=== PATIENT | female | born 1995 | race Caucasian/White ===

== ENCOUNTER 2017-02-28 22:31 | Emergency (ER) | payer SELFPAY ==
[~2017-02-28] VITALS: Ht 154.9 cm; Wt 63.5 kg
[2017-02-28 22:37] VITALS: BP 129/90
--- NOTE | 2017-02-28 23:47 | NUR ---
PATIENT AMBULATED TO ER BED 6.
--- NOTE | 2017-03-01 | NUR ---
PATIENT BEING EVALUATED BY DR. SOSA.
--- NOTE | 2017-03-01 00:01 | NUR ---
PT PRESENT TO ER C/O LOWER ABD PAIN RADIATING TO HER BACK FOR 3 DAYS, HEADACHE,
[2017-03-01] MEDS ORDERED: IBUPROFEN 800 MG TAB PO ONE (00:10)
[2017-03-01] MEDS ORDERED: SULFAMETH/TRIMETH DS 800/160MG 1 TAB PO ONE (00:10)
[2017-03-01 00:28] VITALS: BP 123/84
--- NOTE | 2017-03-01 00:29 | NUR ---
Patient discharged with v/s stable. Written and verbal after care instructions given and explained. Patient alert, oriented and verbalized understanding of instructions. Ambulatory with steady gait. All questions addressed prior to discharge. ID band removed. Patient advised to follow up with PMD. Rx of PYRIDIUM 200MG PO, MACROBID CAPSULE PO, MOTRIN 800MG PO given. Patient educated on indication of medication including possible reaction and side effects. Opportunity to ask questions provided and answered.
== END 2017-03-01 00:29 | disposition home or self-care (01) ==
LOC: MED 22:31
DX: N39.0 Urinary tract infection, site not specified (principal)

== ENCOUNTER 2017-06-02 13:56 | Emergency (ER) | payer OTHER ==
[~2017-06-02] VITALS: Ht 157.5 cm; Wt 67.7 kg
[2017-06-02 14:18] VITALS: BP 127/63
--- NOTE | 2017-06-02 14:38 | NUR ---
PATIENT TO BED 3 AT THIS TIME.
--- NOTE | 2017-06-02 14:53 | NUR ---
PATIENT PRESENTS TO ED WITH UTERINE CRAMPING STARTING A FEW HOURS. PT STATES SHE HAS BEEN VOMITING TODAY. DENIES DIARRHEA. PT IS 17 WEEKS . SKIN IS PINK/WARM/DRY; AAOX4 WITH EVEN AND STEADY GAIT; LUNGS CLEAR BL; HR EVEN AND REGULAR; PT DENIES ANY FEVER, CP, SOB, OR COUGH AT THIS TIME; PATIENT STATES PAIN OF 8/10 AT THIS TIME; VSS; PATIENT POSITIONED FOR COMFORT; HOB ELEVATED; BEDRAILS UP X2; BED DOWN. ER MD MADE AWARE OF PT STATUS.
[2017-06-02] MEDS ORDERED: NACL 0.9% 1,000 ML IV ONE (15:13)
[2017-06-02 15:56] LABS: BASOPHILS # (AUTO) 0.1 K/uL (0.00-0.22); BASOPHILS % (AUTO) 0.6 % (0.0-2.0); EOSINOPHILS # (AUTO) 0.3 K/uL (0-0.4); EOSINOPHILS % (AUTO) 2.4 % (0.0-4.0); HEMATOCRIT 32.3 % (36-48); HEMOGLOBIN 10.8 g/dL (12.0-16.0); LYMPHOCYTES # (AUTO) 2.6 K/uL (2.5-16.5); LYMPHOCYTES % (AUTO) 19.6 % (20.5-51.1); MEAN CORPUSCULAR HEMOGLOBIN 29 pg (27-31); MEAN CORPUSCULAR HGB CONC 34 g/dL (33-37); MEAN CORPUSCULAR VOLUME 87 fL (80-94); MONOCYTES # (AUTO) 0.8 K/uL (0.8-1.0); NEUTROPHILS # (AUTO) 9.3 K/uL (1.8-7.7); NEUTROPHILS % (AUTO) 71.4 % (42.2-75.2); PLATELET COUNT (AUTO) 272 K/uL (140-450); RED BLOOD CELL COUNT(AUTO) 3.71 MIL/uL (4.20-5.40); RED CELL DISTRIBUTION WIDTH 12.7 % (11.6-13.7); WHITE BLOOD COUNT (AUTO) 13.1 K/uL (4.5-11.0)
[2017-06-02 16:04] LABS: ALBUMIN 3.2 g/dL (3.4-5.0); ANION GAP 13.3 (8-16); CARBON DIOXIDE 23.6 mmol/L (21-32); CREATININE 0.5 mg/dL (0.6-1.3); POTASSIUM 3.9 mmol/L (3.5-5.1); TOTAL BILIRUBIN 0.3 mg/dL (0.0-1.0)
--- NOTE | 2017-06-02 16:07 | NUR ---
Patient appears to be resting comfortably in bed. Vital Signs within normal limits. Respirations even and unlabored.
[2017-06-02 16:17] LABS: APPEARANCE,URINE HAZY (CLEAR); BILIRUBIN,URINE NEGATIVE (NEGATIVE); BLOOD, URINE NEGATIVE (NEGATIVE); COLOR,URINE YELLOW (YELLOW); LEUKOCYTE ESTERASE ,URINE NEGATIVE (NEGATIVE); NITRITE, URINE NEGATIVE (NEGATIVE); UGLUCOSE NEGATIVE (NEGATIVE)
--- NOTE | 2017-06-02 16:18 | NUR ---
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
--- NOTE | 2017-06-02 18:05 | NUR ---
Patient discharged with v/s stable. Written and verbal after care instructions given and explained. Patient verbalized understanding. Ambulatory with steady gait. All questions addressed prior to discharge. Advised to follow up with PMD.
[2017-06-02 18:06] VITALS: BP 108/58
== END 2017-06-02 18:05 | disposition home or self-care (01) ==
LOC: MED 13:56
DX: O26.891 Other specified pregnancy related conditions, first trimester (principal); R10.30 Lower abdominal pain, unspecified; Z3A.01 Less than 8 weeks gestation of pregnancy; Z90.49 Acquired absence of other specified parts of digestive tract
CPT/HCPCS: 36415; 76805; 80053; 81003; 81025; 82150; 83690; 84702; 85025; 96360; 96361; 99285; J7030; Q0092

== ENCOUNTER 2018-09-02 10:48 | Emergency (ER) | payer OTHER ==
[~2018-09-02] VITALS: Ht 154.9 cm; Wt 80.5 kg
[2018-09-02 10:55] VITALS: BP 116/81
--- NOTE | 2018-09-02 11:07 | NUR ---
pt taken to lobby w/ vss to wait for the next available bed.
--- NOTE | 2018-09-02 11:50 | NUR ---
pt ambulates w/ steady gait to bed 7 atthis time
--- NOTE | 2018-09-02 11:53 | NUR ---
23 yo f bib self w/ c/o left sided rib cage pain/side pain that started yesterday whilelaying in bed. states that she was unable to sleepon that side because of the pain. denies injury/trauma. reports dizziness, but denies n/v/d/fever. reports that she had a cough yesterday that exacerbated the pain. hx denies rx denies
[2018-09-02] MEDS ORDERED: IBUPROFEN 800 MG TAB PO ONE (12:05)
[2018-09-02 12:12] VITALS: BP 120/75
== END 2018-09-02 12:13 | disposition home or self-care (01) ==
LOC: MED 10:48
DX: M94.0 Chondrocostal junction syndrome [Tietze] (principal)
CPT/HCPCS: 81002; 81025; 99283

== ENCOUNTER 2019-03-02 11:32 | Emergency (ER) | payer OTHER ==
[~2019-03-02] VITALS: Ht 154.9 cm; Wt 81.8 kg
--- NOTE | 2019-03-02 11:44 | NUR ---
PATIENT AMBULATED TO BED 4.
[2019-03-02 11:46] VITALS: BP 151/100
--- NOTE | 2019-03-02 12:01 | NUR ---
PT BIB SELF TO THE ED WITH THE CHIEF C/O FREQUENCY OF URINATION FOR A WEEK. PT NOTICED BLOOD IN URINE LAST NIGHT. DENIES BURNING URINATION. COMPLAINS OF LOWER BACK PAIN 5/10 AT THIS TIME. C/O NAUSEA AND DIARRHEA X3. DENIES VOMITING. ABDOMEN SOFT, ROUND AND NON-TENDER. ACTIVE BOWEL SOUND. DENIES OTHER PROBLEM AT THIS TIME.
[2019-03-02 12:06] LABS: APPEARANCE,URINE CLOUDY (CLEAR); BILIRUBIN,URINE NEGATIVE (NEGATIVE); BLOOD, URINE NEGATIVE (NEGATIVE); COLOR,URINE YELLOW (YELLOW); LEUKOCYTE ESTERASE ,URINE 2+ (NEGATIVE); NITRITE, URINE NEGATIVE (NEGATIVE); UGLUCOSE NEGATIVE (NEGATIVE)
[2019-03-02 12:26] LABS: RBC,URINE NONE SEEN /HPF (0-5); WBC,URINE 0-5 /HPF (0-5)
--- NOTE | 2019-03-02 12:36 | NUR ---
PT BEING EVALUATED BY ER AT THIS TIME.
[2019-03-02] MEDS ORDERED: LEVOFLOXACIN 500 MG TAB PO ONE (12:45)
[2019-03-02 13:30] VITALS: BP 139/88
--- NOTE | 2019-03-02 13:48 | NUR ---
Patient discharged with v/s stable. Written and verbal after care instructions given and explained. Patient alert, oriented and verbalized understanding of instructions. Ambulatory with steady gait. All questions addressed prior to discharge. ID band removed. Patient advised to follow up with PMD. Rx of LEVAQUIN 500MG given. Patient educated on indication of medication including possible reaction and side effects. Opportunity to ask questions provided and answered.
== END 2019-03-02 13:48 | disposition home or self-care (01) ==
LOC: MED 11:32
DX: N30.90 Cystitis, unspecified without hematuria (principal)
CPT/HCPCS: 81001; 81025; 87086; 99283

== ENCOUNTER 2019-06-02 10:39 | Emergency (ER) | payer OTHER ==
[~2019-06-02] VITALS: Ht 157.5 cm; Wt 81.8 kg
[2019-06-02 10:54] VITALS: BP 132/86
--- NOTE | 2019-06-02 12:02 | NUR ---
PT TAKEN TO BED 3.
--- NOTE | 2019-06-02 12:10 | NUR ---
Note undone in EDM - 06/02/19 at 1232 by MED BIB SELF. AAO X4 C/O INTERMITTENT NUMBNESS AND TINGLING FROM FEET TO LEGS AND HANDS X5 DAYS. PT STATES NO PAIN AT THIS TIME. PERRLA BRISK 3MM, FULL CLEAR SPEECH, NO FACIAL ASYMMETRY, EQUAL CHELITA STRENGTH TO UPPER AND LOWER EXTREMITIES. PT AMBULATED WITH STEADY GAIT. +CMS TO CHELITA ARMS AND CHELITA LEGS. ER TO EVALUATE PT.
--- NOTE | 2019-06-02 12:10 | NUR ---
BIB SELF. AAO X4 C/O INTERMITTENT NUMBNESS AND TINGLING FROM FEET TO LEGS AND HANDS X5 DAYS. PT STATES NO PAIN AT THIS TIME. PT DENIES FEVER, N/V/D, SOB AND TRAUMA. PERRLA BRISK 3MM, FULL CLEAR SPEECH, NO FACIAL ASYMMETRY, EQUAL CHELITA STRENGTH TO UPPER AND LOWER EXTREMITIES. PT AMBULATED WITH STEADY GAIT. +CMS TO CHELITA ARMS AND CHELITA LEGS. ER TO EVALUATE PT.
--- NOTE | 2019-06-02 12:20 | NUR ---
DR TURCIOS AT BEDSIDE FOR PT EVALUATION
[2019-06-02 12:59] LABS: BASOPHILS # (AUTO) 0.1 K/uL (0.00-0.22); BASOPHILS % (AUTO) 0.6 % (0.0-2.0); EOSINOPHILS # (AUTO) 0.5 K/uL (0-0.4); EOSINOPHILS % (AUTO) 4.5 % (0.0-4.0); HEMATOCRIT 39.1 % (36-48); HEMOGLOBIN 13.1 g/dL (12.0-16.0); LYMPHOCYTES # (AUTO) 3.4 K/uL (2.5-16.5); LYMPHOCYTES % (AUTO) 32.2 % (20.5-51.1); MEAN CORPUSCULAR HEMOGLOBIN 29 pg (27-31); MEAN CORPUSCULAR HGB CONC 34 g/dL (33-37); MEAN CORPUSCULAR VOLUME 85.9 fL (80-94); MONOCYTES # (AUTO) 0.6 K/uL (0.8-1.0); MONOCYTES % (AUTO) 5.5 % (1.7-9.3); NEUTROPHILS % (AUTO) 57.2 % (42.2-75.2); PLATELET COUNT (AUTO) 332 K/uL (140-450); RED BLOOD CELL COUNT(AUTO) 4.56 MIL/uL (4.20-5.40); RED CELL DISTRIBUTION WIDTH 13.2 % (11.6-13.7); WHITE BLOOD COUNT (AUTO) 10.4 K/uL (4.8-10.8)
[2019-06-02 13:15] LABS: ALBUMIN 3.6 g/dL (3.4-5.0); ANION GAP 10.2 (8-16); CARBON DIOXIDE 28.7 mmol/L (21-32); CREATININE 0.6 mg/dL (0.6-1.3); POTASSIUM 3.9 mmol/L (3.5-5.1); TOTAL BILIRUBIN 0.4 mg/dL (0.0-1.0)
--- NOTE | 2019-06-02 13:32 | NUR ---
pt resting comfortably in bed; vital signs stable.
[2019-06-02 13:56] VITALS: BP 118/74
--- NOTE | 2019-06-02 13:56 | NUR ---
Patient discharged with v/s stable. Written and verbal after care instructions given and explained. Patient alert, oriented and verbalized understanding of instructions. Ambulatory with steady gait. All questions addressed prior to discharge. ID band removed. Patient advised to follow up with PMD. Rx of VALIUM 5 MG given. Patient educated on indication of medication including possible reaction and side effects. Opportunity to ask questions provided and answered.
== END 2019-06-02 13:56 | disposition home or self-care (01) ==
LOC: MED 10:39
DX: R20.2 Paresthesia of skin (principal); M54.9 Dorsalgia, unspecified; R06.02 Shortness of breath; Z90.49 Acquired absence of other specified parts of digestive tract
CPT/HCPCS: 36415; 70450; 80053; 81025; 85025; 99284

== ENCOUNTER 2019-06-15 16:11 | Emergency (ER) | payer OTHER ==
[~2019-06-15] VITALS: Ht 154.9 cm; Wt 81.6 kg
[2019-06-15 16:20] VITALS: BP 118/66
[2019-06-15] MEDS ORDERED: IBUPROFEN 600 MG TAB PO ONE (18:25)
[2019-06-15 19:15] VITALS: BP 110/69
== END 2019-06-15 19:15 | disposition home or self-care (01) ==
LOC: MED 16:11
DX: M25.572 Pain in left ankle and joints of left foot (principal); W18.39XA Other fall on same level, initial encounter; Y92.89 Other specified places as the place of occurrence of the external cause; Y93.89 Activity, other specified; Y99.8 Other external cause status
CPT/HCPCS: 73610; 99283

== ENCOUNTER 2019-07-15 17:24 | Emergency (ER) | payer OTHER ==
[~2019-07-15] VITALS: Ht 154.9 cm; Wt 83.0 kg
[2019-07-15 17:37] VITALS: BP 129/85
[2019-07-15] MEDS ORDERED: KETOROLAC 60 MG/2 ML VIAL IM ONE (17:55)
[2019-07-15 18:32] VITALS: BP 129/85
== END 2019-07-15 18:31 | disposition home or self-care (01) ==
LOC: MED 17:24
DX: N39.0 Urinary tract infection, site not specified (principal); Z90.89 Acquired absence of other organs
CPT/HCPCS: 81002; 81025; 96372; 99283; J1885

== ENCOUNTER 2019-08-13 15:21 | Emergency (ER) | payer OTHER ==
[~2019-08-13] VITALS: Ht 154.9 cm; Wt 81.6 kg
[2019-08-13 15:24] VITALS: BP 107/67
--- NOTE | 2019-08-13 15:30 | NUR ---
PT AMBULATED TO BED 08
--- NOTE | 2019-08-13 15:32 | NUR ---
PATIENT PRESENTS TO ED WITH C/O INTERMITTENT LLQ PAIN, LT SIDE AND LT BACK PAIN X TODAY WORSENING. STATES NAUSEA, URINARY FREQUENCY AND URGENCY. DENIES FEVER. PAIN 10/10. VSS; PATIENT POSITIONED FOR COMFORT; HOB ELEVATED; BEDRAILS UP X2; BED DOWN. ER MD MADE AWARE OF PT STATUS.
[2019-08-13] MEDS ORDERED: DICYCLOMINE 20 MG/2 ML VIAL IM ONE (15:45)
[2019-08-13] MEDS ORDERED: KETOROLAC 60 MG/2 ML VIAL IM ONE (15:45)
[2019-08-13 16:40] LABS: APPEARANCE,URINE SL CLOUDY (CLEAR); BILIRUBIN,URINE NEGATIVE (NEGATIVE); BLOOD, URINE NEGATIVE (NEGATIVE); COLOR,URINE YELLOW (YELLOW); LEUKOCYTE ESTERASE ,URINE 1+ (NEGATIVE); NITRITE, URINE NEGATIVE (NEGATIVE); PH,URINE 7.5 (5.0-9.0); UGLUCOSE NEGATIVE (NEGATIVE)
[2019-08-13 17:00] LABS: RBC,URINE NONE SEEN /HPF (0-5)
[2019-08-13 17:06] VITALS: BP 107/67
--- NOTE | 2019-08-13 17:06 | NUR ---
Patient discharged with v/s stable. Written and verbal after care instructions given and explained. Rx of CIPROFLOXACIN, COLACE given. Patient educated on indication of medication including possible reaction and side effects. All questions addressed prior to discharge. ID band removed. Patient advised to follow up with PMD.
[2019-08-13 17:57] LABS: BARBITURATE, URINE NEG. ng/ml (NEG <=200); BENZODIAZEPINE, URINE NEG. ng/mL (NEG <=200); CANNABINOID, URINE NEG. ng/mL (NEG <=50); COCAINE, URINE NEG. ng/mL (NEG <=300); OPIATE, URINE NEG. ng/mL (NEG <=2000); PHENCYCLIDINE SCREEN,URINE NEG. ng/mL (NEG <=25)
== END 2019-08-13 17:06 | disposition home or self-care (01) ==
LOC: MED 15:21
DX: N39.0 Urinary tract infection, site not specified (principal); K59.00 Constipation, unspecified
CPT/HCPCS: 74018; 80305; 81001; 81025; 87086; 96372; 99284; J0500; J1885; Q0092

== ENCOUNTER 2019-08-18 15:31 | Emergency (ER) | payer OTHER ==
[~2019-08-18] VITALS: Ht 154.9 cm; Wt 85.3 kg
[2019-08-18 15:51] VITALS: BP 122/105
--- NOTE | 2019-08-18 16:04 | NUR ---
WHEELCHAIR ASSISTED PT TO WAIT IN THE LOBBY AND PT IS TAKING TO DO XRAY
--- NOTE | 2019-08-18 16:12 | NUR ---
PT BROUGHT BACK FROM RADIOLOGY AND TAKEN TO 12 VIA WHEELCHAIR.
--- NOTE | 2019-08-18 16:20 | NUR ---
24/F PRESENTS TO ED, C/O L ANKLE PAIN, X30 MINS S/P TRIP AND FALL WHILE STEPPING UP A RAMP 30 MINS AGO. L ANKLE WITH MODERATE SWELLING, SKIN INTACT, ABLE TO MOVE TOES, DECREASED ROM DUE TO PAIN, +2 PEDAL PULSES, <3S CAP REFILL, UNABLE TO BEAR WEIGHT. PT AWAKE AND ALERT, SKIN NORMAL COLOR WARM AND DRY, IN MODERATE PAIN DISTRESS WITH CRYING/MOANING, MILD RESTLESSNESS. DR LEPE MADE AWARE. HX CHOLECYSTECTOMY DENIES RX
[2019-08-18] MEDS ORDERED: HYDROcodone/APAP 5/325 MG 1 TAB TAB PO ONE (17:20)
[2019-08-18] MEDS ORDERED: IBUPROFEN 600 MG TAB PO ONE (18:15)
--- NOTE | 2019-08-18 18:20 | NUR ---
OPENED NORCO PO, BUT PATIENT REFUSED AND REQUESTED FOR IBUPROFEN INSTEAD, PER DR SHERLEY GAO TO SWITCH NORCO PO TO IBUPROFEN 600MG PO AT THIS TIME, WASTED NORCO IN ER PYXIS WITNESSED BY LYNNE SWANSON. ADMINISTERED IBUPROFEN 600MG PO WITH EDUCATION, PT VERBALIZED UNDERSTANDING.
[2019-08-18 18:24] VITALS: BP 119/95
== END 2019-08-18 18:24 | disposition home or self-care (01) ==
LOC: MED 15:31
DX: S93.402A Sprain of unspecified ligament of left ankle, initial encounter (principal); Z90.49 Acquired absence of other specified parts of digestive tract; W19.XXXA Unspecified fall, initial encounter; Y93.89 Activity, other specified; Y92.89 Other specified places as the place of occurrence of the external cause; Y99.8 Other external cause status
CPT/HCPCS: 73610; 73630; 99283

== ENCOUNTER 2024-04-23 01:08 | Emergency (ER) | payer OTHER ==
[~2024-04-23] VITALS: Ht 162.6 cm; Wt 97.5 kg
[2024-04-23 01:15] VITALS: BP 123/65; PULSE 114; RESP 14; TEMP 97.3; O2SAT 98
[2024-04-23] MEDS: HYDROXYZINE HYDROCHLORIDE 25 MG TAB PO ONE (02:08)
[2024-04-23 02:28] LABS: BASOPHILS # (AUTO) 0.1 K/uL (0.00-0.22); BASOPHILS % (AUTO) 0.6 % (0.0-2.0); EOSINOPHILS # (AUTO) 0.2 K/uL (0-0.4); EOSINOPHILS % (AUTO) 1.6 % (0.0-4.0); HEMATOCRIT 39.4 % (36-48); HEMOGLOBIN 13.3 g/dL (12.0-16.0); LYMPHOCYTES # (AUTO) 2.5 K/uL (2.5-16.5); LYMPHOCYTES % (AUTO) 18.5 % (20.5-51.1); MEAN CORPUSCULAR HEMOGLOBIN 29 pg (27-31); MEAN CORPUSCULAR HGB CONC 34 g/dL (33-37); MEAN CORPUSCULAR VOLUME 86.4 fL (80-94); MONOCYTES # (AUTO) 0.8 K/uL (0.8-1.0); NEUTROPHILS # (AUTO) 10.1 K/uL (1.8-7.7); NEUTROPHILS % (AUTO) 73.3 % (42.2-75.2); PLATELET COUNT (AUTO) 360 K/uL (140-450); RED BLOOD CELL COUNT(AUTO) 4.56 MIL/uL (4.20-5.40); RED CELL DISTRIBUTION WIDTH 14.1 % (11.6-13.7); WHITE BLOOD COUNT (AUTO) 13.7 K/uL (4.8-10.8)
[2024-04-23 02:45] LABS: ANION GAP 12.4 (8-16); CALCIUM 9.3 mg/dL (8.5-10.1); CARBON DIOXIDE 26.9 mmol/L (21-32); CREATININE 0.8 mg/dL (0.6-1.3); POTASSIUM 3.3 mmol/L (3.5-5.1)
[2024-04-23] MEDS ORDERED: FAMO-90 PO (03:08)
[2024-04-23] MEDS ORDERED: SUCR1TAB56 PO (03:08)
[2024-04-23] MEDS: ALUMINUM HYD/MAG/SIMETHICONE 30 ML UDC PO ONE (03:14)
[2024-04-23 03:16] VITALS: BP 124/66; PULSE 98; RESP 16; TEMP 97.3; O2SAT 98
== END 2024-04-23 03:16 | disposition home or self-care (01) ==
LOC: MED 01:08
DX: K21.9 Gastro-esophageal reflux disease without esophagitis (principal); F41.9 Anxiety disorder, unspecified; F32.9 Major depressive disorder, single episode, unspecified; Z79.899 Other long term (current) drug therapy
CPT/HCPCS: 36415; 80048; 84484; 85025; 85379; 93005; 99284